=== PATIENT | male | born 1965 | race African-American/Black ===

== ENCOUNTER 2023-11-08 05:19 | Day surgery (SDC) | payer OTHER ==
[2023-11-04 11:48] VITALS: BMI 36.3
[2023-11-08] MEDS ORDERED: KETAMINE HCL 200 MG/20 ML VIAL ONE (07:48)
[2023-11-08 08:30] VITALS: TEMP 97.5
[2023-11-08 08:57] VITALS: RESP 18
[2023-11-08 09:15] VITALS: BP 115/80; PULSE 70
== END 2023-11-08 09:10 | disposition home or self-care (01) ==
LOC: JASU-ENDO 05:19
PROVIDERS: ATTEND Student in an Organized Health Care Education/Training Program
PROC: 0DJD8ZZ Inspection of Lower Intestinal Tract, Via Natural or Artificial Opening Endoscopic (ICD-10-PCS; principal; 2023-11-08 08:00)
DX: Z12.11 Encounter for screening for malignant neoplasm of colon (principal); K57.30 Diverticulosis of large intestine without perforation or abscess without bleeding